=== PATIENT | female | born 2005 | race Caucasian/White ===

== ENCOUNTER → 2024-11-15 | Outpatient (CLI) | payer OTHER ==
--- NOTE | 2024-11-15 17:57 | XR ---
EXAMINATION TYPE: XR cervical spine comp DATE OF EXAM: 11/15/2024 5:36 PM COMPARISON: None CLINICAL INDICATION: Female, 19 years old with history of S13.4XXA, S40.011A, R20.9; PHH, pain TECHNIQUE: The cervical spine was imaged in frontal, lateral, odontoid and bilateral oblique. FINDINGS: The osseous structures show straightened slightly kyphotic alignment without evidence of an acute fra cture. No significant vertebral body osteophytes or facet joint arthropathy. The intervertebral disk spaces are preserved. Pedicles are intact. Soft tissues are within normal limits. The odontoid appea rs intact. IMPRESSION: No fracture or dislocation. [facility], , 11/15/2024 5:55 PM
--- NOTE | 2024-11-15 17:58 | XR ---
EXAMINATION TYPE: XR shoulder complete RT DATE OF EXAM: 11/15/2024 5:36 PM COMPARISON: None CLINICAL INDICATION: Female, 19 years old with history of S13.4XXA, S40.011A, R20.9; PHH, pain TECHNIQUE: XR shoulder complete RT; examined in AP, internally rotated and scapular Y projections. FINDINGS: No evidence of acute osseous pathology, joint dislocation, or soft tissue swelling. The remaining po rtions of the visualized chest are unremarkable. IMPRESSION: No acute osseous pathology. [facility], , 11/15/2024 5:55 PM
== END | disposition home or self-care (01) ==
LOC: RADXRMAIN 17:13
PROVIDERS: ATTEND Emergency Medicine
DX: S13.4XXA Sprain of ligaments of cervical spine, initial encounter (principal); S40.011A Contusion of right shoulder, initial encounter; R20.9 Unspecified disturbances of skin sensation; X58.XXXA Exposure to other specified factors, initial encounter
CPT/HCPCS: 72050

== ENCOUNTER → 2024-11-17 | Outpatient (CLI) | payer OTHER ==
--- NOTE | 2024-11-17 16:41 | XR ---
EXAMINATION TYPE: XR scapula RT DATE OF EXAM: 11/17/2024 COMPARISON: NONE CLINICAL INDICATION: Female, 19 years old with history of S40.011D CONTUSION OF RIGHT SHOULDER, SUBSE QUENT E; TECHNIQUE: 3 views of the right scapular submitted. FINDINGS: There is no evidence of fracture or dislocation. No osseous lesion seen. Glenohumeral joint space is unremarkable. IMPRESSION: Negative [facility], , 11/17/2024 4:39 PM
== END | disposition home or self-care (01) ==
LOC: RADXRMAIN 16:24
PROVIDERS: ATTEND Emergency Medicine
DX: S40.011D Contusion of right shoulder, subsequent encounter (principal)